=== PATIENT | female | born 1955 | race Caucasian/White ===

== ENCOUNTER → 2019-10-13 | Outpatient (CLI) | payer OTHER ==
[~2019-10-13] VITALS: Ht 170.2 cm; Wt 81.1 kg
[~2019-10-13] MED LIST: BENTYL 10 MG CA10 MG PO; CYMBALTA60 MG; DOXEPIN PO; LAMICTAL200 MG PO; LEVOTHYROXIN0.175 MG; LUNESTA3 MG PO; MS CONTIN15 MG PO; NORCO 5-325 TA1 EAC1 PO; PREMARIN; PROVIGIL 200 M200 MG PO; ZOFRAN4 MG PO
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
[2019-10-13 13:39] VITALS: BP 162/113
== END ==
LOC: PAIN 12:06
DX: M25.551 Pain in right hip (principal); Z88.8 Allergy status to other drugs, medicaments and biological substances; Z79.899 Other long term (current) drug therapy

== ENCOUNTER → 2019-10-20 | Outpatient (CLI) | payer OTHER ==
[~2019-10-20] VITALS: Ht 170.2 cm; Wt 81.0 kg
--- NOTE | ~2019-10-20 | P ---
[facility] [address] [address] [place] [address] PROCEDURE REPORT Name: JOHN URBINA Room #: REG TULIO Napoleon#: [id number] Admission: 10/20/19 Attend Phys: Shayan Singh MD Discharge: Date of : 53 Report #: [id number] THIS REPORT FOR: //name// CC: Physician staff Shayan NAVARRO DATE OF SERVICE: 10/20/2019 DIAGNOSIS: Lumbar radiculopathy, right L4-L5 and L5-S1. PROCEDURE: Lumbar epidural steroid injection. INDICATIONS FOR PROCEDURE: The patient was seen in consultation less than 2 weeks ago. She was unable to have an injection on that day. Please refer to that dictation. There have been no significant changes. Procedure was reviewed, potential risks and benefits, she would like to proceed. PROCEDURE: After informed consent, she was taken to fluoroscopic suite, placed prone, skin prepped with ChloraPrep. Skin was anesthetized over the L4-L5 interspace to the right of midline. A 20-gauge Tuohy epidural needle advanced in the epidural space using loss of resistance technique and there was no blood nor CSF aspirated. A 1 mL of Omnipaque was injected. Good spread of dye observed in the epidural space. It was then followed by 3 mL of 0.5% lidocaine mixed with 80 mg of triamcinolone. She tolerated the procedure well. Pain was reduced in recovery room and she was discharged with a followup visit scheduled in the pain clinic in 1-2 months for possible repeat injection. By: [id number] Shayan Singh MD /yady
[2019-10-20 15:18] VITALS: BP 167/111
--- NOTE | 2019-10-20 15:46 | NUR ---
Pain Clinic Assessment: 1. History of Osteoarthritis: Not Applicable History of Rheumatoid Arthritis: Not Applicable 2. Height: 5 ft. 7 in. 170.2 cm. Weight: 178.6 lb. oz. 81.012 kg. Patient's BMI: 28.0 3. Vital Signs: BP: 167/111 Pulse: 79 Resp: 16 Temp: 02 Sat: 100 ECG Mon: 4. Pain Intensity: 8 5. Fall Risk: Dizziness: N Needs help standing or walking: N Fallen in the last 3 months: N Fall risk comments: 6. Patient on Blood Thinner: None 7. History of Hypertension: Y 8. Opioid Therapy greater than 6 weeks: Y Opiate Contract Signed: 9. Risk Assessment Tool Provided: 10. Functional Assessment Tool: 11. Recreational Drug Use: Past greater than 3 mos Drug Type: Tobacco Use: Former Smoker Tobacco Type: Cigarettes Amount or Packs/day: 1 PPD How Many Years: 0 Alcohol Use: No Frequency: Quant:
== END | disposition home or self-care (01) ==
LOC: PAIN 06:58
DX: M54.16 Radiculopathy, lumbar region (principal); G89.29 Other chronic pain; Z98.890 Other specified postprocedural states; Z79.899 Other long term (current) drug therapy; Z88.0 Allergy status to penicillin; Z87.891 Personal history of nicotine dependence

== ENCOUNTER → 2019-11-28 | Outpatient (CLI) | payer OTHER ==
[~2019-11-28] VITALS: Ht 170.2 cm; Wt 79.5 kg
[~2019-11-28] MED LIST changes: +IBUPROFEN 800800 M1 PO
--- NOTE | ~2019-11-28 | HPC ---
[facility] [address] [address] PAIN MANAGEMENT CONSULTATION Name: JOHN URBINA Room #: REG TULIO Espino.#: [id number] Admission: 11/28/19 Attend Phys: Shayan Singh MD Discharge: Date of : 53 Report #: [id number] THIS REPORT FOR: cc: RICARDA NAVARRO Physician not on staff Shayan Singh MD ~ THIS REPORT FOR: //name// CC: Physician staff Shayan NAVARRO DATE OF SERVICE: 11/28/2019 Followup visit for low back pain with radiculopathy, right lower extremity. The patient returns to pain clinic today with her good report from her first injection performed in October. She had 2 days of nearly complete pain relief. Pain then gradually returned and she is here today, still about 40-50% improved. She is under a lot of stress. She is taking care of her mother who is failing. She is doing this after her 2 months ago. She is on her feet a lot. She is required to do a fair amount of manual activities. She would like another injection. I referred her to physical therapy, but because of her social situation at home, she has been unable to attend appointments with Oziel Jasmine and his crew. I would like for her to try and take that on as soon as she has time and is able. PQRS REVIEW: Completed today. She has some pain in her back, but denies osteoarthritis. Her BMI is 32.0, blood pressure 139/94, heart rate 90, respirations 16, O2 sat 99. Pain intensity 6/10. She does not fall, nor is she a fall risk. She is on no blood thinning medications. She does have hypertension under treatment. She is at low risk for addiction. She is not taking pain medications from our clinic. Functional assessment score 38/70, the same as previous visit. She denies use of tobacco or alcohol. IMPRESSION: Lumbar radiculopathy, right L4-L5 distribution. PROCEDURE: Lumbar epidural injection under fluoroscopic guidance. DESCRIPTION OF PROCEDURE: After informed consent, she was taken to fluoroscopic suite, placed prone, skin prepped with ChloraPrep. Skin anesthetized over the L4-L5 interspace. A 20-gauge Tuohy epidural needle advanced at first attempt in the epidural space with loss of resistance. There was no blood or CSF aspirated. A 1 mL of Omnipaque injected. Good spread of dye observed into the [address] [address] PAIN MANAGEMENT CONSULTATION Name: JOHN URBINA Room #: REG CL SherronGil#: [id number] Admission: 11/28/19 Attend Phys: Shayan Singh MD Discharge: Date of : 53 Report #: [id number] epidural space followed by 3 mL of 0.5% lidocaine mixed with 80 mg triamcinolone. She tolerated the procedure well and was observed for 45 minutes and discharged. Follow up as needed. By: 1349 2247 Shayan Singh MD /yady
[2019-11-28 13:05] VITALS: BP 139/94
--- NOTE | 2019-11-28 13:25 | NUR ---
Pain Clinic Assessment: 1. History of Osteoarthritis: Not Applicable History of Rheumatoid Arthritis: Not Applicable 2. Height: 5 ft. 7 in. 170.2 cm. Weight: 175.2 lb. oz. 79.470 kg. Patient's BMI: 32.0 3. Vital Signs: BP: 139/94 Pulse: 90 Resp: 16 Temp: 02 Sat: 99 ECG Mon: 4. Pain Intensity: 6 5. Fall Risk: Dizziness: N Needs help standing or walking: N Fallen in the last 3 months: N Fall risk comments: 6. Patient on Blood Thinner: None 7. History of Hypertension: Y 8. Opioid Therapy greater than 6 weeks: Y Opiate Contract Signed: 9. Risk Assessment Tool Provided: 1-LOW RISK 10. Functional Assessment Tool: 11. Recreational Drug Use: Past greater than 3 mos Drug Type: Tobacco Use: Former Smoker Tobacco Type: Amount or Packs/day: How Many Years: Alcohol Use: No Frequency: Quant:
== END | disposition home or self-care (01) ==
LOC: PAIN 06:56
DX: M54.16 Radiculopathy, lumbar region (principal); G89.29 Other chronic pain; I10 Essential (primary) hypertension; Z98.890 Other specified postprocedural states; Z79.899 Other long term (current) drug therapy; Z87.891 Personal history of nicotine dependence; Z88.0 Allergy status to penicillin

== ENCOUNTER → 2020-04-26 | Outpatient (CLI) | payer OTHER ==
[~2020-04-26] VITALS: Ht 170.2 cm; Wt 76.7 kg
[2020-04-26 09:23] VITALS: BP 167/88
--- NOTE | 2020-04-26 09:43 | NUR ---
Pain Clinic Assessment: 1. History of Osteoarthritis: Not Applicable History of Rheumatoid Arthritis: Not Applicable 2. Height: 5 ft. 7 in. 170.2 cm. Weight: 169.0 lb. oz. 76.658 kg. Patient's BMI: 26.5 3. Vital Signs: BP: 167/88 Pulse: 75 Resp: 16 Temp: 02 Sat: 100 ECG Mon: 4. Pain Intensity: 8 5. Fall Risk: Dizziness: N Needs help standing or walking: N Fallen in the last 3 months: Y Fall risk comments: 6. Patient on Blood Thinner: None 7. History of Hypertension: Y 8. Opioid Therapy greater than 6 weeks: Y Opiate Contract Signed: 9. Risk Assessment Tool Provided: 1-LOW RISK 10. Functional Assessment Tool: 11. Recreational Drug Use: Past greater than 3 mos Drug Type: Tobacco Use: Former Smoker Tobacco Type: Cigarettes Amount or Packs/day: How Many Years: Alcohol Use: No Frequency: Quant:
--- NOTE | 2020-05-10 09:57 | HPC ---
[facility] [address] [address] PAIN MANAGEMENT CONSULTATION Name: JOHN URBINA Room #: REG TULIO Espino.#: [id number] Admission: 04/26/20 Attend Phys: Shayan Singh MD Discharge: Date of : 53 Report #: [id number] THIS REPORT FOR: cc: RICARDA NAVARRO Physician not on staff Shayan Singh MD ~ CC: Physician staff Shayan NAVARRO DATE OF SERVICE: 04/26/2020 Followup visit for lumbar radiculopathy affecting the right lower extremity. I last saw the patient on 11/28/2019 when she received a lumbar epidural injection, which nearly completely relieved her pain for several months. She is now starting to have pain once again and has presented today hoping for another injection given her outstanding response to her prior injection. Today, she reports that the pain is in her low back, radiates down the posterolateral aspect of her right leg all the way to the knee. Most of her pain is in her buttock. It is worse with standing and weightbearing, driving, lifting and bending. 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 She has to do a lot of lifting and this is aggravating her back as well. She needs injection to ease that. I reviewed my prior records. I did not know that she had a colostomy. This was placed in 2015. It was simply missed in my initial evaluation. Her colostomy is stabilized, want to make a note of it in this record since it was not transcribed from her written record to her electronic medical record at last visit. PHYSICAL EXAMINATION: GENERAL: Today, on physical exam, she is pleasant, alert and oriented, outgoing. No signs of depression or anxiety. VITAL SIGNS: Blood pressure is 168/88, heart rate 75, respirations 16, O2 sat 100% on room air with mask. Pain intensity is 8. She moves independently from sitting to standing position, but her gait is antalgic. She has pain across the lower lumbar segment, pain with forward flexion and extension. Tenderness across the lumbosacral segment is noted. Straight leg raising is positive, worse on the right, extending in an L5 distribution. Previously, she had some L4 pain as well into the anterior thigh and more of her pain today seems to be posterior and I will call it L5-S1. IMPRESSION: Lumbar radiculopathy. Multidermatomal distribution. We do not [address] [address] PAIN MANAGEMENT CONSULTATION Name: JOHN URBINA [id number] Admission: 04/26/20 Attend Phys: Shayan Singh MD Discharge: Date of : 53 Report #: [id number] have an MRI. Based on her good response, I am going to proceed today with an L4-L5 epidural injection under fluoroscopic guidance. PROCEDURE: Lumbar epidural steroid injection. PROCEDURE NOTE: After both written and informed consent to include risk of spinal cord damage, increased pain, weakness and dural puncture, the patient was taken to the fluoroscopy suite, placed in the prone position. After sterile prep and drape, a skin wheal with lidocaine was raised. A 22-gauge epidural Tuohy needle was inserted in the midline at L4-L5 with good loss to resistance. Negative aspiration for cerebrospinal fluid or blood was noted. Then 1 mL of Omnipaque under biplanar fluoroscopy showed good spread within the epidural space. This was followed with 80 mg of triamcinolone plus 1 mL of 1.5% preservative-free Xylocaine, 0.5 mL Xylocaine was then injected to flush the needle; it was removed. The patient was monitored for an appropriate period of time and discharged in good and stable condition. <ELECTRONICALLY SIGNED> By: Shayan Singh MD 05/10/20 [id number] Shayan Singh MD /nt
== END ==
LOC: PAIN 08:02
PROVIDERS: ATTEND Anesthesiology Pain Medicine
DX: M54.16 Radiculopathy, lumbar region (principal); G89.29 Other chronic pain; Z98.890 Other specified postprocedural states; Z79.899 Other long term (current) drug therapy; Z88.0 Allergy status to penicillin